=== PATIENT | male | born 1955 | race Caucasian/White ===

== ENCOUNTER → 2019-02-07 11:12 | Outpatient (CLI) | payer MEDICAID, SELFPAY ==
[2019-02-07 12:00] VITALS: BP 138/91; PULSE 62; RESP 12; O2SAT 90
[2019-02-07 12:15] VITALS: BP 144/92; PULSE 70; RESP 16; O2SAT 91
--- NOTE | 2019-02-07 12:22 | XR_ITS ---
EXAM: XR thoracic spine 3V HISTORY: Back pain ITS.REASON: pain Comparison: None FINDINGS: There is exaggeration of the thoracic kyphosis. There is mild wedging of T4 and T5 which appears chronic. No acute fracture or dislocation evident. No lytic or blastic change. Degenerative changes are present in the lower thoracic spine with osteophyte formation. IMPRESSION: Mild wedging of T4 of 30% and T5 of 40% and appears old. Please correlate clinically. Mild degenerative changes otherwise negative
--- NOTE | 2019-02-07 12:22 | XR_ITS ---
EXAM: XR cervical spine 2V HISTORY: Neck pain ITS.REASON: pain ORDERING PHYSICIAN: Vannesa Cho APRN PATIENT AGE: 63 years COMPARISON: None FINDINGS: There is exaggeration of the thoracic kyphosis with resultant exaggeration of the cervical lordosis. Degenerative disc disease is present at C5-C6 T6 C7 and C7-T1. No fracture or dislocation. No lytic or blastic change. IMPRESSION: Degenerative disc disease with thoracic kyphosis and exaggerated cervical lordosis
--- NOTE | 2019-02-07 12:22 | XR_ITS ---
EXAM: XR lumbar spine 2-3V HISTORY: ITS.REASON: pain ORDERING PHYSICIAN: Vannesa Cho APRN PATIENT AGE: 63 years COMPARISON: None FINDINGS: There is minimal lumbar curvature convex right there are degenerative changes in the lower thoracic spine and at L5-S1. Small endplate osteophytes are present from L2 to L4. No fracture or dislocation. No lytic or blastic change. IMPRESSION: Degenerative changes as described above, no acute finding
[2019-02-07 13:25] LABS: Basophils # 0.1 K/mm3 (0-0.2); Basophils % 0.8 % (0.1-2.0); Eosinophils # 0.5 K/mm3 (0.0-0.4); Eosinophils % 5.3 % (0.1-12.0); Hemoglobin 12.5 g/dL (14.1-18.0); Lymphocytes # 2.8 K/mm3 (0.7-4.5); Lymphocytes % 29.1 % (10-50); Mean Corpuscular HGB Conc 31.1 g/dL (31.8-35.4); Mean Corpuscular Hemoglobin 31.2 pg (27.0-31.2); Mean Corpuscular Volume 100.3 fl (80-94); Mean Platelet Volume 7.4 fl (7.4-10.4); Monocytes # 0.5 K/mm3 (0.1-1.0); Monocytes % 5.5 % (1.7-9.3); Neutrophils # 5.7 K/mm3 (1.8-7.8); Neutrophils % 59.3 % (37.0-80.0); Platelet Count 285 K/mm3 (142-424); Red Blood Count 3.99 M/mm3 (4.60-6.20); Red Cell Distribution Width 13.8 % (11.5-17.5); White Blood Count 9.5 K/mm3 (4.8-10.8)
[2019-02-07 14:26] LABS: Alanine Aminotransferase 26 U/L (12-78); Albumin/Globulin Ratio 1.2 (1.1-1.8); Alkaline Phosphatase 67 U/L (46-116); Anion Gap 13.9 mEq/L (5-15); Aspartate Amino Transferase 16 U/L (15-37); Blood Urea Nitrogen 14 mg/dL (7-18); Calcium 8.5 mg/dL (8.5-10.1); Carbon Dioxide 28 mmol/L (21.0-32.0); Chloride 106 mmol/L (98-107); Creatinine,Serum 1.03 mg/dL (0.70-1.30); Estimated Glomerular Filt Rate 73 ml/min (>60); GFR (African American) 88 ML/MIN (>60); Globulin 3.4 gm/dl (1.3-3.2); Glucose 93 mg/dL (74-106); Potassium 3.9 mmoL/L (3.5-5.1); Sodium 144 mmol/L (136-145); Total Protein,Serum 7.4 gm/dL (6.4-8.2)
[2019-02-07 14:42] LABS: C-Reactive Protein < 0.2 mg/L (0.0-0.9)
[2019-02-07 15:20] LABS: Erythrocyte Sedimentation Rate 19 mm/hr (0-20)
[2019-02-08 16:12] LABS: Anti-Centromere B Antibodies <0.2 AI (0.0-0.9); Anti-Jo-1 <0.2 AI (0.0-0.9); Anti-Smith Antibody <0.2 AI (0.0-0.9); Antichromatin Antibodies 0.2 AI (0.0-0.9); Antiscleroderma-70 Antibodies <0.2 AI (0.0-0.9); RNP Antibodies <0.2 AI (0.0-0.9); Sjogren's Anti-SS-A <0.2 AI (0.0-0.9); Sjogren's Anti-SS-B <0.2 AI (0.0-0.9)
[2019-02-09 13:53] LABS: Anti-DNA (DS) Ab Qn 1 IU/mL (0-9); RA Latex Turbid. <10.0 IU/mL (0.0-13.9); Vitamin D 25 Hydroxy 24.7 ng/mL (30.0-100.0)
[2019-02-09 13:54] LABS: Anti-Cyclic Citrullinated Pept 13 units (0-19)
== END ==
PROVIDERS: PCP Nurse Practitioner Family; Visit Provider Nurse Practitioner Family
DX: R06.02 Shortness of breath (principal); Z76.89 Persons encountering health services in other specified circumstances; Z87.891 Personal history of nicotine dependence; M54.2 Cervicalgia; M54.9 Dorsalgia, unspecified; M25.50 Pain in unspecified joint; R53.83 Other fatigue
CPT/HCPCS: 36415; 72040; 72072; 72100; 80053; 82652; 85025; 85651; 86140; 86200; 86225; 86235; 86431; 94060; 94618; 94640

== ENCOUNTER → 2019-02-10 13:14 | Outpatient (CLI) | payer MEDICAID, SELFPAY ==
[2019-02-10 15:32] LABS: Ferritin 276 ng/mL (8-388)
[2019-02-11 09:20] LABS: Iron 77 ug/dL (38-169); UIBC 228 ug/dL (111-343)
[2019-02-11 17:15] LABS: Iron Saturation 25 % (15-55); Vitamin B12 354 pg/mL (232-1245)
== END ==
PROVIDERS: Visit Provider Nurse Practitioner Family
DX: E55.9 Vitamin D deficiency, unspecified (principal)
CPT/HCPCS: 82607; 82728; 82746; 83540; 83550

== ENCOUNTER → 2019-12-04 08:13 | Outpatient (CLI) | payer MEDICARE, MEDICAID, SELFPAY ==
[2019-12-04 11:52] LABS: Adenovirus,PCR Not Detected (NotDetected); Bordetella Pertussis Not Detected (NotDetected); Chlamydophila Pneumoniae, PCR Not Detected (NotDetected); Coronavirus 19, PCR Not Detected (NotDetected); Coronavirus 229E Not Detected (NotDetected); Coronavirus NL63 Not Detected (NotDetected); Coronavirus OC43 Not Detected (NotDetected); Coronovirus HKU1,PCR Not Detected (NotDetected); Human Metapneumovirus Not Detected (NotDetected); Influenza A, PCR Not Detected (NotDetected); Influenza AH1, 2009 Not Detected (NotDetected); Influenza AH1, PCR Not Detected (NotDetected); Influenza AH3,PCR Not Detected (NotDetected); Influenza B, PCR Not Detected (NotDetected); Mycoplasma Pneumoniae, PCR Not Detected (NotDected); Parainfluenza 1, PCR Not Detected (NotDetected); Parainfluenza 2, PCR Not Detected (NotDetected); Parainfluenza 3, PCR Not Detected (NotDetected); Parainfluenza 4, PCR Not Detected (NotDetected); Respiratory Syncytial Virus Not Detected (NotDetected); Rhinovirus/Enterovirus Not Detected (NotDetected)
--- NOTE | 2019-12-04 14:25 | PC.NURSE ---
Notified patient COVID-19 swab was negative and patient could begin colon prep. Notified OR scheduling/dairy department manager as well.
== END ==
PROVIDERS: PCP Emergency Medicine; Visit Provider Surgery
DX: Z01.818 Encounter for other preprocedural examination (principal)
CPT/HCPCS: 87581; 87633; 87798

== ENCOUNTER 2019-12-06 07:42 | Day surgery (SDC) | payer MEDICARE, MEDICAID, SELFPAY ==
--- NOTE | 2019-12-02 12:31 | SUR.PREOP ---
12/02/19 @ 1230--PHONE CALL MADE TO PATIENT. PATIENT UNDERSTANDS THAT LAB WORK AND COVID-19 TESTING NEEDS TO BE COMPLETED @ 0800 ON 12/04/19. PATIENT UNDERSTANDS IF LAB WORK AND COVID-19 TESTS ARE NOT COMPLETED BY 12PM ON THAT DATE, THE SURGERY SCHEDULED WILL BE CANCELLED AND RESCHEDULED FOR ANOTHER TIME.
[2019-12-05 09:02] VITALS: BMI 27.3
[2019-12-06 07:58] VITALS: BP 184/106; PULSE 66; RESP 18; TEMP 36.9; O2SAT 96
--- NOTE | 2019-12-06 08:15 | P.PN_ITS ---
[facility] Anesthesia Checklist - Patient Identification Patient Identification: Arm Band, Verbal (Name & ) - Structural Data Admitted From: Home Planned Operative Procedure/s: Colonoscopy Consent for Planned Operative Procedure(s) Verified: Yes Verified Documents: Surgical Consent, History and Physical - NPO Status Verified Time NPO: 00:00 - Chart Verification Results Verified: CBC (No CBC, but serology negative for Covid-19) - Additional verifications Anesthesia Reactions: No - Airway Assessment C-Spine Mobility Assessed: Yes TMJ Mobility Assessed: Yes Dentition: Poor Dentition - Neurological Assessment Level of Consciousness: Awake, Alert, Appropriate, Follows Commands Hx Seizures: No Numbness or tingling in extremities: No - Anesthesia Plan Anesthesia Risk discussed: Yes Anesthesia Plan: Verified ASA Class: III Anesthesia Type: MAC [facility] History I have reviewed the patient's past medical history: Yes Medical History: Reports:: Anxiety, Chronic Obstructive Pulmonary Disease (COPD), Hyperlipidemia, Hypertension Denies:: Cancer, Diabetes Mellitus Type 1, Diabetes Mellitus Type 2, Internal Pacemaker, MRSA *Have you ever received a pneumonia vaccine?: No *Have you received a flu vaccine this season?: No Comment:: enlarged prostate Anesthesia experience/problems:: no prior complications Other Surgeries: Yes: Colonoscopy, Other. No: Pacemaker Amputation: No Fractures: Yes Comment: hydrocelectomy - *Social History Educational Level: Completed High School Smoking Status: Never smoker Alcohol Intake: former Substance Use Type: marijuana *Occupational Status:: retired Housing: house *Travel in the last 8 weeks: None - Psychiatric History Pschychiatric History:: Reports:: Anxiety Family Hx:: Asthma, Heart Attack, Hyperlipidemia, Stroke
[2019-12-06 08:23] VITALS: O2SAT 96
[2019-12-06 08:50] VITALS: BP 118/74; PULSE 63; RESP 18; TEMP 36.4; O2SAT 93
--- NOTE | 2019-12-06 08:51 | P.PCN_ITS ---
- Procedure: Date: 12/06/19 Procedure Performed:: Total colonoscopy to terminal ileum Indications:: Patient is a 63-year-old white male referred by Malachi Alvarenga essentially for screening colonoscopy. He has never had a previous colonoscopy. He denies any significant symptomatology regarding bleeding in his bowels. He does state that he has some urinary issues and has urinary hesitancy. Of note, he has undergone yearly PSA screening through the [facility] and this past year was noted to have elevated PSA for which she saw Dr. Cornell Thomas in January. Patient did recently undergo prostate biopsy. He is unsure as to family history of colon cancer. Performing Provider:: Luis Antonio Solitario MD Referring Provider:: Malachi Alvarenga Sedation:: Propofol Procedure:: Consent was obtained patient was taken to endoscopy procedure room. He was positioned in a lateral decubitus position. Adequate intravenous sedation was achieved with anesthesia titration of propofol. Variable stiffness Olympus colonoscope was inserted via the anus and advanced to the cecum without difficulty. Colonic preparation was good. Ileocecal valve and appendiceal orifice were clearly identified. Colonoscope was advanced a short distance into the terminal ileum which appeared grossly normal. Colonoscope was slowly withdrawn through the colon with careful surveillance. There were no polyps, masses, or mucosal lesions noted. He did have rare sigmoid diverticuli. Retroflexion within the rectum revealed nonpathologic internal hemorrhoids. There was a possible hyperplastic appearing polyp. However, with prolonged careful surveillance of the rectum with retroflexion and non-retroflexion there was no evidence of any definite polyp. Colonoscope was withdrawn Findings:: Minimal sigmoid diverticuli Recommendations:: Recommend repeat colonoscopy 5 years given the undetermined family history and due to the fact that this is the patient's initial screening colonoscopy Complications:: None Estimated blood obtained (mL): 0
[2019-12-06 09:00] VITALS: BP 144/76; PULSE 64; RESP 18; O2SAT 95
[2019-12-06 09:10] VITALS: BP 129/72; PULSE 65; RESP 18; O2SAT 95
[2019-12-06 09:20] VITALS: BP 131/81; PULSE 58; RESP 18; O2SAT 95
== END 2019-12-06 09:20 | disposition home or self-care (01) ==
LOC: OUTP 07:44
PROVIDERS: PCP Nurse Practitioner Family; Visit Provider Surgery
PROC: 0DJD8ZZ Inspection of Lower Intestinal Tract, Via Natural or Artificial Opening Endoscopic (ICD-10-PCS; principal; 2019-12-06 08:30)
DX: Z12.11 Encounter for screening for malignant neoplasm of colon (principal); K57.30 Diverticulosis of large intestine without perforation or abscess without bleeding
CPT/HCPCS: G0121

== ENCOUNTER → 2020-02-28 08:53 | Outpatient (CLI) | payer MEDICARE, MEDICAID, SELFPAY ==
--- NOTE | 2020-02-28 09:04 | XR_ITS ---
PROCEDURE: XR FOOT WT BEARING LT 3V CLINICAL INDICATION: Crush Injury to left foot 4 years ago. Pain COMPARISON: No exams were available for comparison FINDINGS: No fracture or dislocation. No lytic or blastic change. There is normal mineralization. Minimal osteoarthritic changes 1st metatarsophalangeal joint with mild bony hypertrophy at the distal aspect of the 1st metatarsal. Other findings:None. IMPRESSION: Degenerative changes 1st metatarsophalangeal joint otherwise negative Dictated by: Mau Winchester MD 02/29/2020 07:45 Electronically signed by Mau Winchester MD in [place] 02/29/2020 07:45
--- NOTE | 2020-02-28 09:04 | XR_ITS ---
PROCEDURE: XR FOOT WT BEARING RT 3V CLINICAL INDICATION: comparison view COMPARISON: No exams were available for comparison FINDINGS: No fracture or dislocation. No lytic or blastic change. There is normal mineralization. The joint spaces are well-preserved. No significant degenerative/arthritic changes. No erosive changes evident. Other findings:None. IMPRESSION: No acute findings. Dictated by: Mau Winchester MD 02/29/2020 07:43 Electronically signed by Mau Winchester MD in [place] 02/29/2020 07:43
== END ==
PROVIDERS: PCP Emergency Medicine; Visit Provider Podiatrist
DX: M79.672 Pain in left foot (principal); M79.671 Pain in right foot
CPT/HCPCS: 73630

== ENCOUNTER 2020-04-18 12:17 | Emergency (ER) | payer MEDICARE, MEDICAID, SELFPAY ==
--- NOTE | 2020-04-18 12:20 | HMH.EDGENADL ---
ED Disposition Clinical Impression: Right-sided chest wall pain Headache Qualifiers: Headache type: unspecified Headache chronicity pattern: acute headache Intractability: not intractable Qualified Code(s): R51 - Headache Contusion of right chest wall Qualifiers: Encounter type: initial encounter Qualified Code(s): S20.211A - Contusion of right front wall of thorax, initial encounter Periorbital contusion Qualifiers: Encounter type: initial encounter Laterality: right Qualified Code(s): S05.11XA - Contusion of eyeball and orbital tissues, right eye, initial encounter Subconjunctival hemorrhage Qualifiers: Laterality: right Qualified Code(s): H11.31 - Conjunctival hemorrhage, right eye Disposition: Home, Self-Care Condition on Discharge: Good Additional Instructions: Follow-up with your PCP. Tylenol for pain. If you have any new, changing, worsening, or concerning symptoms, come back to the emergency department. Referrals: Fawad Hoffman MD [Primary Care Provider] - Time of Disposition: 14:57 - Critical Care Critical Care Time: No Attestation: On , the high probability of a clinically significant, sudden or life threatening deterioration of the following system(s) required my full and direct attention, intervention and personal management. The time I documented below is in addition to time spent performing reported procedures but includes the following listed in this critical care notation. Medical Decision Making - Medical Records Medical records reviewed: Yes: I reviewed the patient's medical records. MR Comment: 64-year-old male presents the emergency department after having a syncopal episode and falling. He arrives to the emergency department hemodynamically stable, with reassuring vital signs, and looks well on exam. However given his history of cancer and head trauma, will CT his head, face, chest as well as basic labs. He has subconjunctival hemorrhage of the right eye but there is no blood layering in the anterior chamber, eye is not proptotic and good EOM. No pain so not concerned for corneal abrasion/laceration. Will reassess. On reassessment, patient remains well. Labs reviewed and nonactionable. Imaging personally reviewed and read by radiology and there are no worrisome acute findings. Radiologist did make note of an adrenal lesion, of course hemorrhage was a consideration, but this is unlikely given his trauma, at this time, he only has tenderness over the anterior right chest. Given that he is stable and looks well, advised that he follow-up with his PCP in the next few days. He was given strict return precautions and discharge instructions and verbalized understanding and agreement with the plan. Safe to discharge. - Ayan Inquiry Pt receiving controlled substance: No Vital Signs: 04/18/20 12:33 04/18/20 13:00 04/18/20 14:00 Temperature 98.5 F Temperature Source Oral Pulse Rate [Right Radial] 57 L 64 53 L Respiratory Rate 18 Blood Pressure [Right Arm] 124/78 101/77 L 145/84 H Blood Pressure Mean [Right Arm] 93 85 104 Blood Pressure Source [Right Arm] Automatic Cuff Automatic Cuff Automatic Cuff Blood Pressure Position [Right Arm] Sitting Sitting Sitting 02 Sat by Pulse Oximetry 94 L 94 L 92 L Oxygen Delivery Method Room Air Room Air Room Air 04/18/20 14:45 Temperature Temperature Source Pulse Rate [Right Radial] 64 Respiratory Rate Blood Pressure [Right Arm] 112/63 Blood Pressure Mean [Right Arm] 79 Blood Pressure Source [Right Arm] Automatic Cuff Blood Pressure Position [Right Arm] Sitting 02 Sat by Pulse Oximetry 93 L Oxygen Delivery Method Room Air - Lab Data Lab Results 04/18/20 12:47: WBC 16.7 H, RBC 4.35 L, Hgb 13.9 L, Hct 41.3 L, MCV 95.0 H, MCH 32.1 H, MCHC 33.8, RDW 14.2, Plt Count 248, MPV 7.3 L, Neut % (Auto) 81.6 H, Lymph % (Auto) 12.1, [place] % (Auto) 4.8, Eos % (Auto) 1.0, Baso % (Auto) 0.4, Neut # (Auto) 13.7 H, Lymph # (Auto) 2.0, [place] # (Auto)
--- NOTE | 2020-04-18 12:28 | CT_ITS ---
PROCEDURE: CT HEAD/BRAIN WO CON CLINICAL INDICATION: fall, trauma Head injury with headache/pain, contusion, abrasion or hematoma COMPARISON: No exams were available for comparison TECHNIQUE: Axial images obtained. All CT scans at the facility use one or more dose reduction, viz: automated exposure control, ma/kV adjustment per patient size (including targeted exams where dose is matched to indication, i.e. head), or iterative reconstruction technique. FINDINGS: No midline shift, mass effect, intracranial hemorrhage, hydrocephalus, or extra-axial fluid collection is evident. The calvarium has an unremarkable appearance. No mastoid effusion. There is moderate mucosal thickening of the ethmoid sinuses bilaterally with mucosal thickening/nodularity of the ethmoid and maxillary sinuses also with nodularity the nasal turbinates. These findings are consistent with polyposis. There is mucosal thickening of the sphenoid sinus posteriorly on the right. IMPRESSION: 1. No acute intracranial findings. 2. Polyposis of the nasal canal and paranasal sinuses. Dictated by: Mau Winchester MD 04/18/2020 14:28 Mau Winchester MD in [place] 04/18/2020 14:28
--- NOTE | 2020-04-18 12:29 | CT_ITS ---
PROCEDURE: CT CERVICAL SPINE WO CON CLINICAL INDICATION: trauma Neck injury with pain, contusion/abrasion or hematoma, cervical sprain/strain the COMPARISON: No exams were available for comparison TECHNIQUE: Axial images obtained with sagittal and coronal reformats. All CT scans at the facility use one or more dose reduction, viz: automated exposure control, ma/kV adjustment per patient size (including targeted exams where dose is matched to indication, i.e. head), or iterative reconstruction technique. Axial spiral CT scanning performed of the cervical spine beginning at the base of the skull and continuing to the upper T-spine. 3-D multiplanar reconstruction with 3-D manipulation of volumetric data set in image rendering was completed by the radiologist and/or technologist with the supervision of the radiologist on independent workstation. FINDINGS: There is normal alignment. No fracture or dislocation is evident. There is degenerative disc disease at C5-C6 with mild bilateral foraminal narrowing and mild degenerative disc disease at C6-C7 and C7-T1. Scattered small nodes are present in the neck. IMPRESSION: 1. No acute fracture. 2. Cervical spondylosis Dictated by: Mau Winchester MD 04/18/2020 14:30 Mau Winchester MD in [facility] 04/18/2020 14:30
--- NOTE | 2020-04-18 12:29 | CT_ITS ---
PROCEDURE: CT FACIAL BONES WO CON CLINICAL HISTORY: trauma Right eye pain and swelling with bruising, injury with COMPARISON: No exams were available for comparison TECHNIQUE: Axial images obtained with sagittal and coronal reformats. All CT scans at the facility use one or more dose reduction, viz: automated exposure control, ma/kV adjustment per patient size (including targeted exams where dose is matched to indication, i.e. head), or iterative reconstruction technique. FINDINGS: No obvious fracture. No sinus air-fluid level. There is some mild periorbital soft tissue swelling on the right. No postseptal edema evident. There is mucosal thickening of the maxillary and sphenoid sinuses as well as lobular mucosal thickening of the ethmoid sinuses and mild mucosal thickening of the right frontal sinus. Nodularity is noted of the nasal turbinates with lobular soft tissue density extending into the right maxillary sinus which could be due to a polyp. There is moderate leftward nasal septal deviation. Scattered small nodes are present in the neck. Multiple caries are noted. There are mild osteoarthritic changes of the TMJs. IMPRESSION: 1. No acute fracture. 2. Right periorbital hematoma. 3. Nasal polyposis with polypoid lesion in the right maxillary sinus as well as mild mucosal thickening of the paranasal sinuses. Dictated by: aMu Winchester MD 04/18/2020 14:40 Mau Winchester MD in [place] 04/18/2020 14:40
--- NOTE | 2020-04-18 12:30 | CT_ITS ---
PROCEDURE: CT ANGIO CHEST CLINCIAL INDICATION: syncope, cancer, trauma Blunt trauma with injury and pain, contusion/abrasion or hematoma following injury, right-sided rib pain following injury, fall with injury and pain, bruising and swelling, history of cancer of the prostate COMPARISON: No exams were available for comparison TECHNIQUE: IV Contrast: 70ML OPTIRAY 350 Axial images obtained with sagittal and coronal reformats. All CT scans at the facility use one or more dose reduction, viz: automated exposure control, ma/kV adjustment per patient size (including targeted exams where dose is matched to indication, i.e. head), or iterative reconstruction technique. FINDINGS: No mediastinal or hilar mass or adenopathy. Gynecomastia is noted. No evidence of aortic aneurysm or dissection. No evidence of pulmonary embolus.. There is evidence of old granulomatous disease. Minimal atelectatic changes are present in the lung bases. There are degenerative changes in the thoracic spine with mild wedging involving T6 and T5 which may be chronic. There is stranding of the fat in the suprarenal area on the right with thickening of the right posterior hemidiaphragm. There is a 3.8 cm right slightly hyperdense adrenal mass. Hemorrhage or infection or inflammation in this area is a consideration. This is incompletely image. Consider CT abdomen for further evaluation. IMPRESSION: 1. No acute finding of the chest. 2. Stranding of the fat in the suprarenal region on the right with thickening of the hemidiaphragm. This is associated with a 3.8 cm hyperdense right adrenal mass. Hemorrhage of the lesion is a consideration. Suggest abdomen CT for further evaluation. Dictated by: Mau Winchester MD 04/18/2020 14:47 Mau Winchester MD in [place] 04/18/2020 14:48
[2020-04-18 12:33] VITALS: BP 124/78; PULSE 57; RESP 18; TEMP 36.9; O2SAT 94; BMI 25.2
--- NOTE | 2020-04-18 12:40 | PC.NURSE ---
kong notified of orders on pt, spoke with Sofy
--- NOTE | 2020-04-18 12:41 | PC.NURSE ---
visual acuity R 20/70-reports vision blurry- notified ER MD Alves 20/40
--- NOTE | 2020-04-18 12:41 | PC.NURSE ---
v/s delayed due to visual acuity and IV insertion
[2020-04-18 12:55] LABS: Basophils # 0.1 K/mm3 (0-0.2); Basophils % 0.4 % (0.1-2.0); Eosinophils # 0.2 K/mm3 (0.0-0.4); Hematocrit 41.3 % (42.0-52.0); Hemoglobin 13.9 g/dL (14.1-18.0); Lymphocytes % 12.1 % (10-50); Mean Corpuscular HGB Conc 33.8 g/dL (31.8-35.4); Mean Corpuscular Hemoglobin 32.1 pg (27.0-31.2); Mean Platelet Volume 7.3 fl (7.4-10.4); Monocytes # 0.8 K/mm3 (0.1-1.0); Monocytes % 4.8 % (1.7-9.3); Neutrophils # 13.7 K/mm3 (1.8-7.8); Neutrophils % 81.6 % (37.0-80.0); Platelet Count 248 K/mm3 (142-424); Red Blood Count 4.35 M/mm3 (4.60-6.20); Red Cell Distribution Width 14.2 % (11.5-17.5); White Blood Count 16.7 K/mm3 (4.8-10.8)
[2020-04-18 13:00] VITALS: BP 101/77; PULSE 64; O2SAT 94
[2020-04-18 13:00] LABS: Chloride 107 mmol/L (98-107); Potassium 4.3 mmoL/L (3.5-5.1); Sodium 141 mmol/L (136-145)
[2020-04-18 13:01] LABS: MANUAL DIFFERENTIAL MANUAL DIFFERENTIAL (MANUAL DIFF)
[2020-04-18 13:02] LABS: Alanine Aminotransferase 61 U/L (12-78); Aspartate Amino Transferase 63 U/L (17-59); Blood Urea Nitrogen 16 mg/dl (9-20); Creatinine Clearance Estimated 76 mL/min (50-200); Estimated Glomerular Filt Rate 85 ml/min (>60); GFR (African American) 102 ML/MIN (>60)
[2020-04-18 13:03] LABS: Albumin/Globulin Ratio 1.3 (1.1-1.8); Alkaline Phosphatase 51 U/L (38-126); Anion Gap 11.3 mEq/L (5-15); Bilirubin,Total 1.3 mg/dl (0.2-1.3); Calcium 8.9 mg/dl (8.4-10.2); Carbon Dioxide 27 mmol/L (22.0-30.0); Globulin 3.1 g/dL (1.3-3.2); Glucose 138 mg/dl (74-100); Total Protein,Serum 7.1 g/dl (6.3-8.2)
[2020-04-18 13:17] LABS: Eosinophils % 2 % (0-3); Lymphocytes % 8 % (10-50); Monocytes % 3 % (2-9); Neutrophils % 87 % (42-76); Platelet Estimate Normal; RBC Morphology Normal; Total Cells Counted 100
--- NOTE | 2020-04-18 13:52 | PC.NURSE ---
Pt is with rad at this time.
--- NOTE | 2020-04-18 13:56 | PC.NURSE ---
Pt returned from rad.
[2020-04-18 14:00] VITALS: BP 145/84; PULSE 53; O2SAT 92
[2020-04-18 14:45] VITALS: BP 112/63; PULSE 64; O2SAT 93
--- NOTE | 2020-04-18 15:28 | PC.NURSE ---
pt reports unable to take any NSAIDs, notified ER MD who gave additional verbal orders
[2020-04-18 15:35] VITALS: BP 122/81; PULSE 53; RESP 18; TEMP 36.9; O2SAT 93
== END 2020-04-18 15:39 | disposition home or self-care (01) ==
PROVIDERS: Emergency Provider Emergency Medicine; PCP Emergency Medicine
DX: S20.211A Contusion of right front wall of thorax, initial encounter (principal); S05.11XA Contusion of eyeball and orbital tissues, right eye, initial encounter; H11.31 Conjunctival hemorrhage, right eye; I10 Essential (primary) hypertension; E78.5 Hyperlipidemia, unspecified; J44.9 Chronic obstructive pulmonary disease, unspecified; C61 Malignant neoplasm of prostate; W18.39XA Other fall on same level, initial encounter; Y92.013 Bedroom of single-family (private) house as the place of occurrence of the external cause; Z79.899 Other long term (current) drug therapy
CPT/HCPCS: 70450; 70486; 71275; 72125; 80053; 85007; 85025; 99283; Q9967

== ENCOUNTER → 2020-09-17 14:17 | Outpatient (CLI) | payer MEDICARE, MEDICAID, SELFPAY ==
--- NOTE | 2020-09-17 14:29 | XR_ITS ---
PROCEDURE: XR PELVIS MIN 3V CLINICAL INDICATION: pelvis pain Status post fall, landing on buttocks, complaints of pain and bruising COMPARISON: No exams were available for comparison TECHNIQUE: XR Pelvis AP View FINDINGS: No fracture or dislocation is evident. No significant degenerative change. No lytic or blastic change. IMPRESSION: No acute findings. Dictated by: Marisela James 09/17/2020 19:09 Marisela James in [place] 09/17/2020 19:09
--- NOTE | 2020-09-17 14:29 | XR_ITS ---
PROCEDURE: XR COCCYX 2V CLINICAL INDICATION: tail bone pain Status post fall landing on buttocks, complaints of pain and bruising COMPARISON: Pelvic x-rays from the same date FINDINGS: There is mild left angulation anterior curvature of the coccyx, within normal limits. There is no fracture. IMPRESSION: No acute findings. Dictated by: Marisela James 09/17/2020 19:12 Marisela James in [facility] 09/17/2020 19:12
== END ==
PROVIDERS: PCP Emergency Medicine; Visit Provider Emergency Medicine
DX: M53.3 Sacrococcygeal disorders, not elsewhere classified (principal); R10.2 Pelvic and perineal pain
CPT/HCPCS: 72190; 72220

== ENCOUNTER → 2020-10-04 15:21 | Outpatient (CLI) | payer MEDICARE, MEDICAID, SELFPAY ==
[2020-10-04 16:24] LABS: Chloride 108 mmol/L (98-107); Potassium 4.4 mmoL/L (3.5-5.1); Sodium 141 mmol/L (136-145)
[2020-10-04 16:27] LABS: Anion Gap 9.4 mEq/L (5-15); Blood Urea Nitrogen 13 mg/dl (9-20); Calcium 9.6 mg/dl (8.4-10.2); Carbon Dioxide 28 mmol/L (22.0-30.0); Estimated Glomerular Filt Rate 67 ml/min (>60); GFR (African American) 81 ML/MIN (>60); Glucose 119 mg/dl (74-100)
== END ==
PROVIDERS: Visit Provider Emergency Medicine
DX: Z01.812 Encounter for preprocedural laboratory examination (principal)
CPT/HCPCS: 36415; 80048

== ENCOUNTER → 2020-10-05 09:10 | Outpatient (CLI) | payer MEDICARE, MEDICAID, SELFPAY ==
--- NOTE | 2020-10-05 09:10 | CT_ITS ---
PROCEDURE: CT ABDOMEN WO/W CON CLINICAL HISTORY: adrenal gland disorder COMPARISON: CT CT ANGIO CHEST from 04/18/2020 TECHNIQUE: 70 mL Isovue 370 Axial images obtained with sagittal and coronal reformats. All CT scans at the facility use one or more dose reduction, viz: automated exposure control, ma/kV adjustment per patient size (including targeted exams where dose is matched to indication, i.e. head), or iterative reconstruction technique. FINDINGS: Pre and post enhanced are with delayed images per adrenal. Calcified granuloma is present in the right lower lobe. Previously noted right adrenal mass has nearly resolved. The adrenal gland on the right now measures 1.8 IX cm. The previously noted right adrenal mass may have been due to adrenal hemorrhage which has shown resolution. The left adrenal gland has an unremarkable appearance. There is mild fatty liver infiltration. The left adrenal gland has an unremarkable appearance. There are multiple right renal cysts measuring up to 3 cm. The pancreas has an unremarkable appearance. Unremarkable appearing spleen. IMPRESSION: Previously noted right adrenal mass has nearly resolved consistent with resolving adrenal hemorrhage. Dictated by: Mau Winchester MD 10/06/2020 10:45 Mau Winchester MD in [facility] 10/06/2020 10:45
== END ==
PROVIDERS: PCP Emergency Medicine; Visit Provider Emergency Medicine
DX: E27.9 Disorder of adrenal gland, unspecified (principal)
CPT/HCPCS: 74170; Q9967

== ENCOUNTER → 2020-12-14 15:15 | Outpatient (CLI) | payer MEDICARE, MEDICAID, SELFPAY ==
--- NOTE | 2020-12-14 15:15 | MR_ITS ---
PROCEDURE INFORMATION: Exam: MR Lumbar Spine Without Contrast Exam date and time: 12/14/2020 3:15 PM Age: 65 years old Clinical indication: Low back pain and sciatica; Patient HX: Bilateral hip and leg pain, no recent trauma or injury. 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 No prior; Additional info: Cauda equina syndrome TECHNIQUE: Imaging protocol: Multiplanar magnetic resonance images of the lumbar spine without intravenous contrast. COMPARISON: CR (L SPINE AP, LSPINE, L SPINE AP) 02/07/2019 12:24 PM FINDINGS: Vertebrae: Unremarkable. Spinal cord: Normal signal. No cord compression. L1-L2: No significant disc disease. No significant spinal canal stenosis. No neural foraminal stenosis. L2-L3: No significant disc disease. No significant spinal canal stenosis. No neural foraminal stenosis. L3-L4: No significant disc disease. No significant spinal canal stenosis. No neural foraminal stenosis. L4-L5: No significant disc disease. No significant spinal canal stenosis. No neural foraminal stenosis. L5-S1: Severe loss of disc height and signal is seen with a mild diffuse disc bulge. This is slightly greater to the right than the left and extends into the neural foramen. Moderate bilateral facet joint arthropathy is seen with anterior protruding osteophytes which in combination with the disc changes causes moderate left and moderate to severe right neural foraminal stenosis. Mild associated spinal stenosis is seen.. Soft tissues: Unremarkable. Kidneys and ureters: Well-circumscribed water signal lesions at the inferior pole of the right kidney are seen consistent with simple cysts. No additional evaluation is needed. IMPRESSION: Degenerative changes at L5-S1 as above. No acute fracture or malalignment.
== END ==
PROVIDERS: PCP Emergency Medicine; Visit Provider Emergency Medicine
DX: G83.4 Cauda equina syndrome (principal); M54.5 Low back pain
CPT/HCPCS: 72148; 76376

== ENCOUNTER → 2021-01-10 09:47 | Outpatient (POV) | payer MEDICARE, SELFPAY ==
[2021-01-10 10:12] VITALS: BP 102/71; PULSE 50; RESP 18; O2SAT 96; BMI 25.0
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
== END ==
PROVIDERS: PCP Emergency Medicine; Visit Provider Clinical Nurse Specialist Family Health
DX: M54.5 Low back pain (principal); M25.551 Pain in right hip; M25.552 Pain in left hip; M46.1 Sacroiliitis, not elsewhere classified
CPT/HCPCS: 99202; G0463

== ENCOUNTER 2021-01-18 10:36 | Day surgery (SDC) | payer MEDICARE, MEDICAID, SELFPAY ==
[2021-01-18 11:02] VITALS: BP 116/68; PULSE 64; RESP 18; TEMP 36.7; O2SAT 95; BMI 25.0
[2021-01-18 12:51] VITALS: BP 133/80; PULSE 51; RESP 20; O2SAT 96
[2021-01-18 12:58] VITALS: BP 124/73; PULSE 58; RESP 20; O2SAT 98
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
[2021-01-18 15:02] VITALS: BP 121/78; PULSE 50; RESP 18; TEMP 36.7; O2SAT 95
== END 2021-01-18 13:00 | disposition home or self-care (01) ==
PROVIDERS: PCP Emergency Medicine; Visit Provider Anesthesiology Pain Medicine
DX: M46.1 Sacroiliitis, not elsewhere classified (principal); E78.5 Hyperlipidemia, unspecified; I10 Essential (primary) hypertension; J44.9 Chronic obstructive pulmonary disease, unspecified; F41.9 Anxiety disorder, unspecified; Z88.6 Allergy status to analgesic agent
CPT/HCPCS: 27096; G0260; J1030; Q9966

== ENCOUNTER → 2021-02-11 11:49 | Outpatient (POV) | payer MEDICARE, MEDICAID, SELFPAY ==
[2021-02-11 11:57] VITALS: BP 117/78; PULSE 89; RESP 18; O2SAT 95; BMI 25.2
--- NOTE | 2021-02-11 12:35 | HMH.PAINSOAP ---
[facility] Pain Management SOAP Note Subjective:: Patient is a pleasant 65-year-old white male who presents today for follow-up after bilateral SI joint injections. He has been treated for low back pain with bilateral hip pain and pain in his lower extremities. He says the pain is worse on the left leg and radiation into his left ankle. Patient says that he got 100% relief following the injection for approximately 1 week. He says the more work he began to do such as heavy lifting and shoveling, his pain worsened. His pain is a 7 out of 10 today. He does say the injections gave him significant relief immediately after the injections, however, he says he continues to have some low back pain, however. Patient says his pain is worse when he is moving. He says that his back locks up . He says walking and standing worsen the pain as well. He is also complaining of right shoulder pain. We did discuss undergoing repeat injection therapy. He would like to try a lumbar epidural steroid injection to see if this helps with his low back pain. He says that the SI injection gave him relief to his bilateral hips and to his left leg. It did not help as much with the low back area. He has tried and failed conservative therapies of physical therapy for greater than 6 weeks in the past along with continued home stretching and anti-inflammatories. He does take clonazepam and [place] prescribed by Dr. Hoffman. Review of Systems General: No recent weight changes, no fever, no sleep disturbances Respiratory: No cough, no shortness of air, no recurring pulmonary infections Cardiovascular/peripheral vascular: No chest pain, no palpitations, no edema, no shortness of breath Gastrointestinal: No new onset incontinence, normal bowel movements reported Genitourinary: No new onset incontinence Musculoskeletal: Low back pain, bilateral hip pain, left leg pain radiating to ankle Psychiatric: Normal mood/affect Neurological: [Denies weakness in extremities], [denies balance issues] Objective:: Physical exam General: Alert and oriented x3, no acute distress, pleasant and cooperative, [on room air] Lungs: Respirations even and unlabored, symmetrical chest expansion Eyes: PERRL Musculoskeletal: Flexion and extension of lumbar spine somewhat guarded secondary to pain, deep tendon reflexes normal, strength in upper and lower extremities [5/5], [abnormal gait noted] Neurological: Speech clear, help desk specialist equal, no gross sensory deficit Assessment:: Degenerative disc disease lumbar spine with lumbar radiculopathy symptoms, Plan:: We will schedule patient for lumbar epidural steroid injection at L4-L5 area. He is not on any anticoagulation therapy. He has tried physical therapy for more than 6 weeks and continued home stretching. He is also tried meloxicam for which he is still taking with some relief, however, he continues to have significant pain. He did undergo bilateral SI injections which gave him excellent relief of his bilateral hip and leg pain, however, he did not help much with his low back pain. Patient continues to have worsening low back pain with movement and with working. We will schedule him for the lumbar epidural steroid injection at L4-L5 area. We will follow-up with him after the injection for reevaluation of symptoms. Patient is also having right shoulder pain. We did discuss he may need to undergo a right intra-articular shoulder injection in the future. We discussed imaging, however, he has deferred on imaging until treatment of his low back. Risks and benefits of the procedure have been explained to the patient. Patient would like to proceed with the procedure. Possible side effects of corticosteroids have been discussed with the patient. Patient has been instructed to contact the clinic with any concerns before the next appointment. Dr. Bahena has reviewed this note and agrees with this plan of care. This note was dictated using voice recogniti
== END ==
PROVIDERS: PCP Emergency Medicine; Visit Provider Clinical Nurse Specialist Family Health
DX: M51.16 Intervertebral disc disorders with radiculopathy, lumbar region (principal)
CPT/HCPCS: 99212; G0463

== ENCOUNTER → 2021-02-28 10:30 | Outpatient (POV) | payer MEDICARE, MEDICAID, SELFPAY ==
[2021-02-28 10:41] VITALS: BP 88/64; PULSE 71; RESP 20; O2SAT 94; BMI 25.0
--- NOTE | 2021-02-28 11:08 | P.CONS_ITS ---
[facility] Pain Management SOAP Note Subjective:: Patient is a 65-year-old white male who presents today for follow-up. Patient is being treated for low back pain with bilateral hip pain and pain in his lower extremities. Pain is worse on the left side and radiates into the left ankle. He has had 1 injection for which he got 100% relief for a week, however, he says he is not proceeding with any further injective therapy. He is here today to discuss possible medication options. He does take clonazepam and [place] prescribed by Dr. Hoffman. Patient is asking for chlorzoxazone. He says this is the only thing that gives him significant relief. This was given to him in the past by Dr. Neal. Patient says that he does not with her medications if they do not help. He has tried Flexeril with minimal relief. We discussed possible tizanidine. He says he is willing to try this. His pain is a 7 out of 10 today. Review of Systems General: No recent weight changes, no fever, no sleep disturbances Respiratory: No cough, no recurring pulmonary infections Cardiovascular/peripheral vascular: No chest pain, no palpitations, [no edema], no shortness of breath Gastrointestinal: No new onset incontinence, normal bowel movements reported Genitourinary: No new onset incontinence Musculoskeletal: [] Low back pain with radiation into left leg and ankle Psychiatric: [Normal mood/affect] Neurological: [Denies weakness in extremities], [denies balance issues] Objective:: Physical exam General: Alert and oriented x3, no acute distress, pleasant and cooperative, [on room air] Lungs: Respirations even and unlabored, symmetrical chest expansion Eyes: PERRL Musculoskeletal: Flexion and extension of [] lumbar [spine] somewhat guarded secondary to pain, strength in upper and lower extremities [5/5], [antalgic gait noted] Neurological: Speech clear, [tearoom host/hostess equal], no gross sensory deficit Assessment:: Degenerative disc disease lumbar spine with lumbar radiculopathy symptoms Plan:: Patient has deferred on injective therapy at this time. We will order him tizanidine 2 mg 1 tablet p.o. twice daily. We will see him back in a month for reevaluation of symptoms. Patient has been instructed to contact the clinic with any concerns before the next appointment. Dr. Bahena has reviewed this note and agrees with this plan of care. This note was dictated using voice recognition software and make contain errors or omissions. [facility] History I have reviewed the patient's past medical history: Yes Medical History: Reports:: Anxiety, Chronic Obstructive Pulmonary Disease (COPD), Hyperlipidemia, Hypertension Denies:: Cancer, Diabetes Mellitus Type 1, Diabetes Mellitus Type 2, Internal Pacemaker, MRSA, Seizures *Have you ever received a pneumonia vaccine?: No *Have you received a flu vaccine this season?: No Other Medical History: Denies: Blood Transfusion Reaction Other Surgeries: Yes: Cancer Surgery (prostate), Colonoscopy, Other. No: Pacemaker Amputation: No Fractures: Yes - *Social History Smoking Status: Former smoker Alcohol Intake: never Substance Use Type: marijuana *Occupational Status:: retired Housing: house *Travel in the last 8 weeks: None - Psychiatric History Pschychiatric History:: Reports:: Anxiety Family Hx:: Asthma, Heart Attack, Hyperlipidemia, Stroke
== END ==
PROVIDERS: PCP Emergency Medicine; Visit Provider Clinical Nurse Specialist Family Health
DX: M51.16 Intervertebral disc disorders with radiculopathy, lumbar region (principal)
CPT/HCPCS: 99212; G0463

== ENCOUNTER → 2021-04-01 11:01 | Outpatient (POV) | payer MEDICARE, MEDICAID, SELFPAY ==
[2021-04-01 11:29] VITALS: BP 111/72; PULSE 55; RESP 18; O2SAT 97; BMI 24.9
--- NOTE | 2021-04-01 12:10 | P.CONS_ITS ---
[facility] Pain Management SOAP Note Subjective:: Patient is a 65-year-old white male who presents today for follow-up. He has been treated for low back pain with bilateral hip pain and bilateral lower extremity pain. Patient's pain is worse on the left side and radiates into the left ankle. He has had 1 injection in the clinic for which he got 100% relief for 2 weeks. Unfortunately, the patient's pain did return. Patient is not interested in further injective therapy. He did follow-up with his primary care provider who has placed him on oral pain medicine for pain management. Patient says this is working well for him at this time. We did prescribe the patient tizanidine and he would like to continue this for muscle spasms in his low back. Patient does rate his pain today a 7 out of 10. Review of Systems General: No recent weight changes, no fever, no sleep disturbances Respiratory: No cough, no shortness of air, no recurring pulmonary infections Cardiovascular/peripheral vascular: No chest pain, no palpitations, no edema, no shortness of breath Gastrointestinal: No new onset incontinence, normal bowel movements reported Genitourinary: No new onset incontinence Musculoskeletal: Low back pain with radiation into bilateral hips, and lower extremities Psychiatric: [Normal mood/affect] Neurological: [Denies weakness in extremities], [denies balance issues] Objective:: Physical exam General: Alert and oriented x3, no acute distress, pleasant and cooperative, [on room air] Lungs: Respirations even and unlabored, symmetrical chest expansion Eyes: PERRL Musculoskeletal: Flexion and extension of lumbar [spine] somewhat guarded secondary to pain, strength in upper and lower extremities [5/5], [antalgic gait noted] Neurological: Speech clear, [director of diagnostic imaging equal], no gross sensory deficit Assessment:: Degenerative disc disease lumbar spine with lumbar radiculopathy symptoms Plan:: We will refill the patient's tizanidine 4 mg 1 tablet p.o. twice daily. We will give him 2 refills on the medicine. He will follow up with us in 2 months. He is being managed with oral medications by his primary care provider at this time as well. He has been instructed to contact clinic if he has any concerns for his next appointment. He is not interested in further injective therapy. Patient has been instructed to contact the clinic with any concerns before the next appointment. Dr. Bahena has reviewed this note and agrees with this plan of care. This note was dictated using voice recognition software and make contain errors or omissions. [facility] History I have reviewed the patient's past medical history: Yes Medical History: Reports:: Anxiety, Chronic Obstructive Pulmonary Disease (COPD), Hyperlipidemia, Hypertension Denies:: Cancer, Diabetes Mellitus Type 1, Diabetes Mellitus Type 2, Internal Pacemaker, MRSA, Seizures *Have you ever received a pneumonia vaccine?: No *Have you received a flu vaccine this season?: No Other Medical History: Denies: Blood Transfusion Reaction Other Surgeries: Yes: Cancer Surgery (prostate), Colonoscopy, Other. No: Pacemaker Amputation: No Fractures: Yes - *Social History Smoking Status: Former smoker Alcohol Intake: never Substance Use Type: marijuana *Occupational Status:: unemployed Housing: house *Travel in the last 8 weeks: None - Psychiatric History Pschychiatric History:: Reports:: Anxiety Family Hx:: Asthma, Heart Attack, Hyperlipidemia, Stroke
== END ==
PROVIDERS: PCP Emergency Medicine; Visit Provider Clinical Nurse Specialist Family Health
DX: M51.16 Intervertebral disc disorders with radiculopathy, lumbar region (principal)
CPT/HCPCS: 99212; G0463

== ENCOUNTER → 2021-05-08 13:59 | Outpatient (CLI) | payer MEDICARE, MEDICAID, SELFPAY ==
[2021-05-08 14:19] LABS: Amphetamine/Metha Screen,Urine Negative ng/ml (<1000); Benzodiazepines Screen,Urine Negative ng/ml (<200)
[2021-05-08 14:20] LABS: Barbiturates Screen,Urine Negative ng/ml (<200)
[2021-05-08 14:21] LABS: Cannabinoid Screen,Urine Positive ng/ml (<50); Cocaine Screen,Urine Negative ng/ml (<300)
[2021-05-08 14:22] LABS: Methadone Screen,Urine Negative ng/ml (<300); Opiate Screen,Urine Positive ng/ml (<300)
[2021-05-08 14:23] LABS: Phencyclidine Screen,Urine Negative ng/ml (<25)
== END ==
PROVIDERS: Visit Provider Emergency Medicine
DX: Z79.899 Other long term (current) drug therapy (principal)
CPT/HCPCS: 80305

== ENCOUNTER → 2021-07-08 14:43 | Outpatient (CLI) | payer MEDICARE, MEDICAID, SELFPAY ==
[2021-07-08 19:37] LABS: Amphetamine/Metha Screen,Urine Negative ng/ml (<1000); Barbiturates Screen,Urine Negative ng/ml (<200)
[2021-07-08 19:38] LABS: Benzodiazepines Screen,Urine Negative ng/ml (<200)
[2021-07-08 19:39] LABS: Cannabinoid Screen,Urine Positive ng/ml (<50)
[2021-07-08 19:40] LABS: Cocaine Screen,Urine Negative ng/ml (<300); Methadone Screen,Urine Negative ng/ml (<300)
[2021-07-08 19:41] LABS: Opiate Screen,Urine Positive ng/ml (<300)
[2021-07-08 19:42] LABS: Phencyclidine Screen,Urine Negative ng/ml (<25)
== END ==
PROVIDERS: Visit Provider Emergency Medicine
DX: M54.16 Radiculopathy, lumbar region (principal)
CPT/HCPCS: 80305

== ENCOUNTER → 2021-08-08 09:12 | Outpatient (CLI) | payer MEDICARE, MEDICAID, SELFPAY ==
--- NOTE | 2021-08-08 09:41 | XR_ITS ---
FINAL REPORT CLINICAL HISTORY: right hip pain FINDINGS: RIGHT HIP Two views of the right hip including AP pelvis demonstrate no acute fracture or dislocation. The joint spaces appear normal. The visualized bony structures are well aligned. No soft tissue abnormality is seen. IMPRESSION: No acute bony abnormality. Reviewed, Interpreted and Dictated by Bruno Miranda MD Transcribed by Isis Cordero Authenticated by Bruno Miranda MD on 08/08/2021 12:22:22 PM [facility][1]
== END ==
PROVIDERS: PCP Emergency Medicine; Visit Provider Emergency Medicine
DX: M25.551 Pain in right hip (principal)
CPT/HCPCS: 73502

== ENCOUNTER 2021-10-23 13:05 | Outpatient (RCR) | payer MEDICARE, MEDICAID, SELFPAY | END 2021-10-23 13:10 | disposition home or self-care (01) | LOC: PT 13:05 | PROVIDERS: Visit Provider Orthopaedic Surgery | DX: M25.551 Pain in right hip (principal) | CPT/HCPCS: 97163 ==

== ENCOUNTER → 2021-11-01 10:59 | Outpatient (CLI) | payer MEDICARE, MEDICAID, SELFPAY ==
[2021-11-01 14:52] LABS: Amphetamine/Metha Screen,Urine Negative ng/ml (<1000)
[2021-11-01 14:53] LABS: Barbiturates Screen,Urine Negative ng/ml (<200); Benzodiazepines Screen,Urine Negative ng/ml (<200)
[2021-11-01 14:55] LABS: Cannabinoid Screen,Urine Positive ng/ml (<50); Cocaine Screen,Urine Negative ng/ml (<300)
[2021-11-01 14:56] LABS: Methadone Screen,Urine Negative ng/ml (<300); Opiate Screen,Urine Positive ng/ml (<300)
[2021-11-01 14:57] LABS: Phencyclidine Screen,Urine Negative ng/ml (<25)
== END ==
PROVIDERS: Visit Provider Emergency Medicine
DX: M54.16 Radiculopathy, lumbar region (principal)
CPT/HCPCS: 80305

== ENCOUNTER → 2021-12-31 14:37 | Outpatient (CLI) | payer MEDICARE, MEDICAID, SELFPAY ==
[2021-12-31 15:31] LABS: Amphetamine/Metha Screen,Urine Negative ng/ml (<1000); Barbiturates Screen,Urine Negative ng/ml (<200)
[2021-12-31 15:32] LABS: Benzodiazepines Screen,Urine Negative ng/ml (<200)
[2021-12-31 15:33] LABS: Cannabinoid Screen,Urine Positive ng/ml (<50); Cocaine Screen,Urine Negative ng/ml (<300)
[2021-12-31 15:34] LABS: Methadone Screen,Urine Negative ng/ml (<300)
[2021-12-31 15:35] LABS: Opiate Screen,Urine Positive ng/ml (<300); Phencyclidine Screen,Urine Negative ng/ml (<25)
== END ==
PROVIDERS: PCP Emergency Medicine; Visit Provider Emergency Medicine
DX: M54.16 Radiculopathy, lumbar region (principal)
CPT/HCPCS: 80305

== ENCOUNTER → 2022-02-27 13:02 | Outpatient (CLI) | payer MEDICARE, MEDICAID, SELFPAY ==
--- NOTE | 2022-02-27 13:08 | XR_ITS ---
FINAL REPORT CLINICAL HISTORY: fracture evaluation FINDINGS: LEFT FOOT 3 views were obtained. There is no acute fracture or dislocation. There is multi joint degenerative disease most pronounced at the 1st MTP joint. There is no soft tissue abnormality. IMPRESSION: No fracture identified. Reviewed, Interpreted and Dictated by Filomena Hager MD Transcribed by Isis Cordero Authenticated and [facility]
--- NOTE | 2022-02-27 13:08 | XR_ITS ---
FINAL REPORT CLINICAL HISTORY: fracture evaluation COMPARISON: 01/31/2022 FINDINGS: AP, oblique, and lateral views of the left ankle were obtained. There is no fracture or dislocation. Irregularity of the medial anterior talus is unchanged. The ankle mortise is intact. There is improved soft tissue edema. IMPRESSION: No acute osseous abnormality of the left ankle. Reviewed, Interpreted and Dictated by Filomena Hager MD Transcribed by Isis Cordero Authenticated and [facility]
== END ==
PROVIDERS: PCP Emergency Medicine; Visit Provider Podiatrist
DX: T14.8XXA Other injury of unspecified body region, initial encounter (principal); M25.572 Pain in left ankle and joints of left foot
CPT/HCPCS: 73610; 73630

== ENCOUNTER 2022-03-03 16:19 | Emergency (ER) | payer MEDICARE, MEDICAID, SELFPAY ==
[2022-03-03 16:21] VITALS: BP 137/90; PULSE 80; RESP 16; TEMP 36.9; O2SAT 93; BMI 24.7
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
--- NOTE | 2022-03-03 18:05 | PC.NURSE ---
DR COLEMAN IN WITH PT
[2022-03-03 18:28] VITALS: BP 129/89; PULSE 84; RESP 16; TEMP 36.9; O2SAT 95
== END 2022-03-03 18:28 | disposition home or self-care (01) ==
PROVIDERS: Emergency Provider Emergency Medicine; PCP Emergency Medicine
DX: S92.102 Unspecified fracture of left talus (principal); G89.29 Other chronic pain; M54.50 Low back pain, unspecified
CPT/HCPCS: 99283

== ENCOUNTER → 2022-03-12 06:15 | Outpatient (CLI) | payer MEDICARE, MEDICAID, SELFPAY ==
[2022-03-12 19:05] LABS: Amphetamine/Metha Screen,Urine Negative ng/ml (<1000)
[2022-03-12 19:06] LABS: Barbiturates Screen,Urine Negative ng/ml (<200); Benzodiazepines Screen,Urine Positive ng/ml (<200)
[2022-03-12 19:07] LABS: Cannabinoid Screen,Urine Positive ng/ml (<50)
[2022-03-12 19:08] LABS: Cocaine Screen,Urine Negative ng/ml (<300)
[2022-03-12 19:09] LABS: Methadone Screen,Urine Negative ng/ml (<300)
[2022-03-12 19:10] LABS: Opiate Screen,Urine Positive ng/ml (<300)
[2022-03-12 19:11] LABS: Phencyclidine Screen,Urine Negative ng/ml (<25)
== END ==
PROVIDERS: PCP Emergency Medicine; Visit Provider Emergency Medicine
DX: M54.16 Radiculopathy, lumbar region (principal)
CPT/HCPCS: 80305

== ENCOUNTER → 2022-03-26 13:57 | Outpatient (CLI) | payer MEDICARE, MEDICAID, SELFPAY ==
--- NOTE | 2022-03-26 14:02 | CT_ITS ---
FINAL REPORT TECHNIQUE: Thin section axial CT images with coronal and sagittal reformats were performed. 3D images were also submitted. This study was performed with techniques to keep radiation doses as low as reasonably achievable (ALARA). Individualized dose reduction techniques using automated exposure control or adjustment of mA and/or kV according to the patient''s size were employed. CLINICAL HISTORY: fracture evaluation FINDINGS: CT LOWER EXTREMITY WITHOUT CONTRAST There is a comminuted displaced fracture of the anterior talus with a fracture line that is predominantly vertical in orientation. There are multiple small fragments well seen on the sagittal images 31-37 of series 602. There are also multiple ossific fragments seen in the middle and posterior subtalar joints consistent with intra-articular loose bodies. The mortise is intact. The medial and lateral malleoli are intact. IMPRESSION: Comminuted displaced fracture of the anterior talus with intra-articular loose bodies extending into the subtalar joints as described. Reviewed, Interpreted and Dictated by Bruno Miranda MD Transcribed by Isis Cordero Authenticated and [facility]
== END ==
PROVIDERS: PCP Emergency Medicine; Visit Provider Podiatrist
DX: M25.572 Pain in left ankle and joints of left foot (principal); S92.102A Unspecified fracture of left talus, initial encounter for closed fracture
CPT/HCPCS: 73700

== ENCOUNTER → 2022-05-10 08:28 | Outpatient (CLI) | payer MEDICARE, MEDICAID, SELFPAY ==
[2022-05-09 18:22] LABS: Amphetamine/Metha Screen,Urine Negative ng/ml (<1000)
[2022-05-09 18:23] LABS: Barbiturates Screen,Urine Negative ng/ml (<200)
[2022-05-09 18:24] LABS: Benzodiazepines Screen,Urine Negative ng/ml (<200); Cannabinoid Screen,Urine Positive ng/ml (<50)
[2022-05-09 18:25] LABS: Methadone Screen,Urine Negative ng/ml (<300)
[2022-05-09 18:26] LABS: Cocaine Screen,Urine Negative ng/ml (<300)
[2022-05-09 18:27] LABS: Phencyclidine Screen,Urine Negative ng/ml (<25)
[2022-05-09 18:28] LABS: Opiate Screen,Urine Positive ng/ml (<300)
== END ==
PROVIDERS: PCP Emergency Medicine; Visit Provider Emergency Medicine
DX: M54.16 Radiculopathy, lumbar region (principal)
CPT/HCPCS: 80305

== ENCOUNTER → 2022-07-07 11:31 | Outpatient (CLI) | payer MEDICARE, MEDICAID, SELFPAY ==
[2022-07-07 15:06] LABS: Amphetamine/Metha Screen,Urine Negative ng/ml (<1000); Barbiturates Screen,Urine Negative ng/ml (<200)
[2022-07-07 15:07] LABS: Benzodiazepines Screen,Urine Negative ng/ml (<200)
[2022-07-07 15:08] LABS: Cannabinoid Screen,Urine Positive ng/ml (<50)
[2022-07-07 15:09] LABS: Cocaine Screen,Urine Negative ng/ml (<300)
[2022-07-07 15:10] LABS: Methadone Screen,Urine Negative ng/ml (<300)
[2022-07-07 15:11] LABS: Opiate Screen,Urine Positive ng/ml (<300); Phencyclidine Screen,Urine Negative ng/ml (<25)
== END ==
PROVIDERS: PCP Emergency Medicine; Visit Provider Emergency Medicine
DX: M54.16 Radiculopathy, lumbar region (principal)
CPT/HCPCS: 80305

== ENCOUNTER → 2022-08-05 14:02 | Outpatient (CLI) | payer MEDICARE, MEDICAID, SELFPAY ==
--- NOTE | 2022-08-05 14:13 | XR_ITS ---
FINAL REPORT CLINICAL HISTORY: hx of fx FINDINGS: LEFT CALCANEUS 2 views were obtained. There is no acute fracture. The visualized joint spaces are intact. There is no soft tissue abnormality. IMPRESSION: No acute process. Reviewed, Interpreted and Dictated by Dany Theodore MD Transcribed by Bhavin Lemons Authenticated and [facility]
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
[2022-08-14 02:44] LABS: 1,25 Dihydroxy Vitamin D 47 pg/mL (.); 1,25-Dihydroxy, Vitamin D-2 <10 pg/mL (.); 1,25-Dihydroxy, Vitamin D-3 45 pg/mL (.)
== END ==
PROVIDERS: PCP Emergency Medicine; Visit Provider Podiatrist
DX: S92.11 Fracture of neck of talus (principal); E55.9 Vitamin D deficiency, unspecified
CPT/HCPCS: 36415; 73630; 73650; 82652

== ENCOUNTER → 2022-10-07 11:26 | Outpatient (CLI) | payer MEDICARE, MEDICAID, SELFPAY ==
--- NOTE | 2022-10-07 12:14 | XR_ITS ---
FINAL REPORT CLINICAL HISTORY: heel pain COMPARISON: 08/05/2022 FINDINGS: LEFT HEEL 2 views of the left calcaneus were obtained. There is a subacute talar fracture with a bony fragment superiorly. Bony alignment is stable. There is no acute fracture or dislocation. The joint spaces are intact. There is no soft tissue abnormality. IMPRESSION: Subacute talar fracture with a bony fragment superiorly. No new bony abnormality. Reviewed, Interpreted and Dictated by Luis Antonio Montalvo III, MD Transcribed by Isis Cordero Authenticated and . [facility]
--- NOTE | 2022-10-07 12:14 | XR_ITS ---
FINAL REPORT CLINICAL HISTORY: foot pain COMPARISON: 08/05/2022 FINDINGS: LEFT FOOT Three weight-bearing views of the left foot demonstrate no acute fracture or dislocation. There are mild degenerative changes, stable. The soft tissues are unremarkable. IMPRESSION: Mild degenerative changes with no acute bony abnormality. Reviewed, Interpreted and Dictated by Luis Antonio Montalvo III, MD Transcribed by Isis Cordero Authenticated and [facility]
== END ==
PROVIDERS: PCP Emergency Medicine; Visit Provider Podiatrist
DX: M19.172 Post-traumatic osteoarthritis, left ankle and foot (principal); S92.11 Fracture of neck of talus
CPT/HCPCS: 73630; 73650

== ENCOUNTER → 2022-10-29 11:08 | Outpatient (CLI) | payer MEDICARE, MEDICAID, SELFPAY ==
[2022-10-29 17:16] LABS: Amphetamine/Metha Screen,Urine Negative ng/ml (<1000); Barbiturates Screen,Urine Negative ng/ml (<200); Benzodiazepines Screen,Urine Negative ng/ml (<200); Cannabinoid Screen,Urine Positive ng/ml (<50); Cocaine Screen,Urine Negative ng/ml (<300); Methadone Screen,Urine Negative ng/ml (<300); Opiate Screen,Urine Positive ng/ml (<300); Phencyclidine Screen,Urine Negative ng/ml (<25)
== END ==
PROVIDERS: PCP Emergency Medicine; Visit Provider Emergency Medicine
DX: M54.16 Radiculopathy, lumbar region (principal)
CPT/HCPCS: 80305

== ENCOUNTER 2022-12-12 14:30 | Outpatient (RCR) | payer MEDICARE, MEDICAID, SELFPAY ==
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
--- NOTE | 2022-11-07 12:18 | HMH.RHREAS ---
Rehab Reassessment Rehab OP Re-assessment Start: 11/07/22 08:18 Freq: Status: Active Protocol: Document 11/07/22 11:17 NIKI (Rec: 11/07/22 12:17 NIKI [id number]) E-signed By Lien Jacobs, PT Rehab Re-assessment Subjective Subjective Pt presents to the PT clinic with reports of continued ankle pain. Pt rates current L ankle pain as a 9/10. Pt reports that he has not noticed an improvement in L ankle function since beginning PT treatment. Pt reports he continues to have difficulty with stepping down onto ground and pain with all movements. Objective Objective Notes L ankle AROM DF: 5* PF: 25* IN: 20* EV: 5* L ankle MMT DF: 4-/5 PF: 3+/5 IN: 3+/5 EV: 3+/5 Assessment Progress Assessment Slower Than Expected Assessment Notes Pt has made improvements in L ankle AROM and L ankle strength compared to the initial evaluation. Pt has been limited in attending PT treatment sessions due to transportation/scheduling issues and has attended one treatment session since the initial evaluation. Pt remains limited by high levels of pain at rest and during movements. Patient goals met Met STG MMT Goals Not Met STG ROM, STG Pain, LTG's Revised Goals n/a Plan Plan Continue with current plan of care, recommend pt to follow up with referring provider to discuss pain management options. Frequency of Therapy 2-3x/wk Duration of therapy 4-6wks Time and Billing Re-Eval Time 10 Re-Eval Billing Units 1 PHYSICIAN CERTIFICATION: I certify the specified therapy services for Tommy Griffin are required, authorized, and reviewed every
--- NOTE | 2022-12-12 15:44 | HMH.RHREAS ---
Rehab Reassessment Rehab OP Re-assessment Start: 11/07/22 08:18 Freq: Status: Active Protocol: Document 12/12/22 14:48 NIKI (Rec: 12/12/22 15:44 RUILALA [id number]) E-signed By Lien Jacobs, PT Rehab Re-assessment Subjective Subjective Pt presents to the PT clinic with reports of 7/10 L ankle pain. Pt reports he continues to have pain and difficulty with all ankle motions, especially with walking on uneven ground. Pt reports 50% improvement since beginning PT treatment. Pt reports he is scheduled to see Dr. Viveros on 12/30/22. Objective Objective Notes L ankle AROM DF: 5* PF: 30* IN: 20* EV: 5* L ankle MMT DF: 4+/5 PF: 4+/5 IN: 4-/5 EV: 4-/5 Assessment Progress Assessment Slower Than Expected Assessment Notes Pt had attended 4 physical therapy treatment sessions since the initial evaluation performed on 10/10/2022. Pt has been limited in progression of L ankle strength, ROM and functional capacity due to limited number of treatment sessions attended as well as subjective reports of high levels of pain on VAS with treatment interventions. Pt has improved in L ankle strength and DF/PF AROM since re-evaluation performed on 11/07. Pt has been unable to tolerate interventions consisting of L ankle strengthening, AROM and balance due to high levels of L ankle pain during and following interventions. Pt experiences some short-term pain relief with therapeutic modalities. Discussed with pt who is in agreement to hold PT
== END 2022-12-12 14:35 | disposition home or self-care (01) ==
LOC: PT 14:30
PROVIDERS: PCP Emergency Medicine; Visit Provider Podiatrist
DX: M24.072 Loose body in left ankle (principal); M24.08 Loose body, other site
CPT/HCPCS: 97010; 97014; 97033; 97035; 97110; 97163; 97164; G0283

== ENCOUNTER → 2022-12-26 10:41 | Outpatient (CLI) | payer MEDICARE, MEDICAID, SELFPAY ==
--- NOTE | 2022-12-26 10:45 | XR_ITS ---
FINAL REPORT CLINICAL HISTORY: ankle pain FINDINGS: LEFT ANKLE Three views demonstrate no acute fracture or dislocation. The visualized joint spaces are normally aligned. There are mild degenerative changes. The soft tissues are unremarkable. IMPRESSION: No acute bony abnormality. Reviewed, Interpreted and Dictated by Luis Antonio Montalvo III, MD Transcribed by Yamile Vance Authenticated and . [facility]
--- NOTE | 2022-12-26 10:45 | XR_ITS ---
FINAL REPORT CLINICAL HISTORY: Foot Pain FINDINGS: LEFT FOOT Three views of the left foot demonstrate no acute fracture or dislocation. There are mild degenerative changes of the great toe. The visualized joint spaces are normally aligned. The soft tissues are unremarkable. IMPRESSION: No acute bony abnormality. Reviewed, Interpreted and Dictated by Luis Antonio Montalvo III, MD Transcribed by Yamile Vance Authenticated and [facility]
== END ==
PROVIDERS: PCP Emergency Medicine; Visit Provider Podiatrist
DX: M79.673 Pain in unspecified foot (principal); M25.579 Pain in unspecified ankle and joints of unspecified foot
CPT/HCPCS: 73610; 73630

== ENCOUNTER → 2022-12-26 23:23 | Outpatient (CLI) | payer MEDICARE, MEDICAID, SELFPAY ==
[2022-12-26 19:05] LABS: Basophils % 0.4 % (0.1-2.0); Eosinophils # 0.3 K/mm3 (0.0-0.4); Eosinophils % 2.8 % (0.1-12.0); Hematocrit 41.5 % (42.0-52.0); Hemoglobin 13.1 g/dL (14.1-18.0); Lymphocytes # 2.2 K/mm3 (0.7-4.5); Lymphocytes % 21.9 % (10-50); Mean Corpuscular HGB Conc 31.5 g/dL (31.8-35.4); Mean Corpuscular Hemoglobin 31.7 pg (27.0-31.2); Mean Corpuscular Volume 100.5 fl (80-94); Mean Platelet Volume 7.6 fl (7.4-10.4); Monocytes # 0.7 K/mm3 (0.1-1.0); Monocytes % 6.6 % (1.7-9.3); Neutrophils # 6.9 K/mm3 (1.8-7.8); Neutrophils % 68.2 % (37.0-80.0); Platelet Count 256 K/mm3 (142-424); Red Blood Count 4.13 M/mm3 (4.60-6.20); Red Cell Distribution Width 13.1 % (11.5-17.5)
[2022-12-26 19:32] LABS: Alanine Aminotransferase 23 U/L (12-78); Albumin Level 4.4 g/dl (3.5-5.0); Albumin/Globulin Ratio 1.3 (1.1-1.8); Alkaline Phosphatase 59 U/L (38-126); Anion Gap 18.3 mEq/L (5-15); Aspartate Amino Transferase 29 U/L (17-59); Bilirubin,Total 0.3 mg/dl (0.2-1.3); Blood Urea Nitrogen 16 mg/dl (9-20); Calcium 9.3 mg/dl (8.4-10.2); Carbon Dioxide 26 mmol/L (22.0-30.0); Chloride 103 mmol/L (98-107); Chol/HDL Ratio 4.9 (1-3.5); Cholesterol 186 mg/dl (140-200); Estimated Glomerular Filt Rate 84 ml/min (>60); GFR (African American) 102 ML/MIN (>60); Globulin 3.4 g/dL (1.3-3.2); Glucose 122 mg/dl (74-100); HDL Cholesterol 38 mg/dl (40-60); Potassium 4.3 mmoL/L (3.5-5.1); Sodium 143 mmol/L (136-145); Total Protein,Serum 7.8 g/dl (6.3-8.2); Triglycerides 149 mg/dl (30-150); VLDL Cholesterol 30 mg/dL (0-40)
[2022-12-26 19:43] LABS: Direct LDL Cholesterol 114.35 mg/dL (100-129)
[2022-12-26 19:51] LABS: 25-OH Vitamin D, Total 37.1 ng/mL (30-100)
[2022-12-26 20:04] LABS: Prostate Specific Ag Screen 0.4 ng/ml (0.0-4.0); Thyroid Stimulating Hormone 1.51 uIU/mL (0.465-4.68)
[2023-01-01 05:43] LABS: Free Testosterone (Direct) 2.7 pg/mL (6.6-18.1); Testosterone, Total, LC/MS 346.8 ng/dL (264.0-916.0)
== END ==
PROVIDERS: PCP Emergency Medicine; Visit Provider Emergency Medicine
DX: F41.9 Anxiety disorder, unspecified; E66.3 Overweight; E55.9 Vitamin D deficiency, unspecified; H11.31 Conjunctival hemorrhage, right eye; M19.172 Post-traumatic osteoarthritis, left ankle and foot; M25.372 Other instability, left ankle; M76.72 Peroneal tendinitis, left leg; E29.1 Testicular hypofunction; Z68.26 Body mass index [BMI] 26.0-26.9, adult; Z12.5 Encounter for screening for malignant neoplasm of prostate
CPT/HCPCS: 73610; 73630; 80053; 80061; 82306; 84443; 85025; G0103

== ENCOUNTER → 2023-01-16 08:47 | Outpatient (CLI) | payer MEDICARE, MEDICAID, SELFPAY ==
--- NOTE | 2023-01-16 08:48 | MR_ITS ---
FINAL REPORT CLINICAL HISTORY: Left ankle pain. ANKLE FRACTURE 11 MONTHS AGO. LATERAL SIDED ANKLE PAIN SINCE. COMPARISON: None FINDINGS: Multiplanar MR imaging of the left ankle was performed without contrast. There is a subacute chronic fracture involving the talar neck and distal talus. In addition, there is a 4 mm focus of abnormal signal in the lateral talar dome which may represent osteochondral fracture or osteochondral lesion. There is overlying cartilage thinning. There is mild degenerative change. There is a 6 mm osteochondral lesion inferior to the talus at the posterior subtalar joint. There is irregularity of the ATFL consistent with tear or partial tear. The flexor and extensor tendons are intact. The posterior plantar aponeurosis is intact. No significant joint effusion is seen. The musculature is intact. There is no evidence of soft tissue mass or cyst. IMPRESSION: Subacute fracture involving the talar neck and distal talus. Osteochondral fracture or osteochondral lesion lateral talar dome. Inferior talus osteochondral lesion. Tear or partial tear of the ATFL. Reviewed, Interpreted and Dictated by Luis Antonio Montalvo III, MD Transcribed by Leti Rivas Authenticated and [facility]
== END ==
PROVIDERS: PCP Emergency Medicine; Visit Provider Podiatrist
DX: M25.372 Other instability, left ankle (principal); M76.72 Peroneal tendinitis, left leg; R60.0 Localized edema; M25.572 Pain in left ankle and joints of left foot
CPT/HCPCS: 73721

== ENCOUNTER → 2023-02-02 12:34 | Outpatient (CLI) | payer MEDICARE, MEDICAID, SELFPAY ==
[2023-02-02 13:55] LABS: Hemoglobin A1C < 4.0 % (4.0-6.0)
[2023-02-02 14:02] LABS: Vitamin B12 372 pg/mL (239-931)
[2023-02-04 15:09] LABS: Folate, RBC 1161 ng/mL (>498); Hematocrit 37.8 % (37.5-51.0)
[2023-02-08 02:09] LABS: Testosterone, Total, LC/MS 361 ng/dL (.)
== END ==
PROVIDERS: PCP Emergency Medicine; Visit Provider Emergency Medicine
DX: D64.9 Anemia, unspecified (principal); R73.09 Other abnormal glucose; E55.9 Vitamin D deficiency, unspecified; C61 Malignant neoplasm of prostate
CPT/HCPCS: 36415; 82607; 82747; 83036; 84403; 85014

== ENCOUNTER → 2023-02-24 13:01 | Outpatient (CLI) | payer MEDICARE, MEDICAID, SELFPAY ==
[2023-02-24 18:17] LABS: Amphetamine/Metha Screen,Urine Negative ng/ml (<1000); Barbiturates Screen,Urine Negative ng/ml (<200)
[2023-02-24 18:18] LABS: Benzodiazepines Screen,Urine Negative ng/ml (<200)
[2023-02-24 18:19] LABS: Cannabinoid Screen,Urine Positive ng/ml (<50); Cocaine Screen,Urine Negative ng/ml (<300)
[2023-02-24 18:21] LABS: Methadone Screen,Urine Negative ng/ml (<300); Opiate Screen,Urine Positive ng/ml (<300)
[2023-02-24 18:22] LABS: Phencyclidine Screen,Urine Negative ng/ml (<25)
== END ==
PROVIDERS: PCP Emergency Medicine; Visit Provider Physician Assistant
DX: M54.16 Radiculopathy, lumbar region (principal)
CPT/HCPCS: 80305

== ENCOUNTER → 2023-06-01 08:46 | Outpatient (CLI) | payer MEDICARE, MEDICAID, SELFPAY ==
[2023-06-01 22:33] LABS: Amphetamine/Metha Screen,Urine Negative ng/ml (<1000)
[2023-06-01 22:34] LABS: Barbiturates Screen,Urine Negative ng/ml (<200); Benzodiazepines Screen,Urine Negative ng/ml (<200)
[2023-06-01 22:35] LABS: Cannabinoid Screen,Urine Positive ng/ml (<50); Cocaine Screen,Urine Negative ng/ml (<300)
[2023-06-01 22:36] LABS: Methadone Screen,Urine Negative ng/ml (<300)
[2023-06-01 22:37] LABS: Opiate Screen,Urine Positive ng/ml (<300); Phencyclidine Screen,Urine Negative ng/ml (<25)
== END ==
PROVIDERS: PCP Emergency Medicine; Visit Provider Emergency Medicine
DX: M54.16 Radiculopathy, lumbar region (principal)
CPT/HCPCS: 80305

== ENCOUNTER 2023-08-07 16:55 | Emergency (ER) | payer MEDICARE, MEDICAID, SELFPAY ==
[2023-08-07 16:56] VITALS: BP 144/76; PULSE 66; RESP 18; TEMP 37; O2SAT 93; BMI 24.9
--- NOTE | 2023-08-07 17:48 | ED_ITS ---
Discharge Plan Disposition Patient Disposition: Home, Self-Care Condition: Good Prescriptions Prescriptions: No Action Poly-Vi-Eulalia 250 mcg-50 mg- 10 mcg/mL drops 1 ml PO DAILY Qty: 50 5RF albuterol sulfate 90 mcg/actuation HFA aerosol inhaler See Rx Instructions .ROUTE .COMPLEX Qty: 18 0RF Dose Instruction: INHALE 2 PUFFS BY MOUTH EVERY 4 TO 6 HOURS NEEDED FOR SHORTNESS OF BREATH OR WHEEZING Rx Instructions: INHALE 2 PUFFS BY MOUTH EVERY 4 TO 6 HOURS NEEDED FOR SHORTNESS OF BREATH OR WHEEZING clonazepam 0.5 mg tablet 0.5 mg PO QID Qty: 120 1RF gabapentin 800 mg tablet 800 mg PO TID Qty: 90 1RF hydrocodone-acetaminophen 10-325 mg tablet 1 tab PO QID Qty: 120 0RF budesonide-formoterol [Symbicort] 80-4.5 mcg/actuation HFA aerosol inhaler 1 puff IH BID Qty: 10.2 2RF tadalafil 2.5 mg tablet See Rx Instructions .ROUTE .COMPLEX Qty: 30 1RF Dose Instruction: TAKE ONE TABLET BY MOUTH ONCE A DAY NEEDED FOR SEXUAL ACTIVITY Rx Instructions: TAKE ONE TABLET BY MOUTH ONCE A DAY NEEDED FOR SEXUAL ACTIVITY Referrals Follow up/Referrals: Provider,Referral, MD [Primary Care Provider] - See instructions Activity Restrictions/Add. Instructions Additional Instructions/Restrictions: Please follow-up with the pain clinic. Please return with any new or worsening symptoms Clinical Impressions Clinical Impression: Chronic foot pain Qualifiers: Laterality: left Qualified Code(s): M79.672 - Pain in left foot Discharge ED Provider: Triston Jaquez Adult HPI General Chief complaint: Fall Stated complaint: AO fall 08/01, left ankle pain Time Seen by Provider: 08/07/23 17:48 Mode of Arrival: Ambulatory Source of Information: Patient Limitations: No Limitations Description of Symptoms (Recalled from ER Triage Doc. by RN): c/o fall last Thursday on a wood pile resulting in pain in his lower back, STates that he seen his pcp who told him he couldnt write for any pain medicine per the hospital. Pt states that he hasnt had his prescribed pain medicine since Thursday. Denies any other pain or injuries at this time, denies hitting his head. History of Present Illness HPI narrative: Patient states he was sent from his primary care provider's office, he has history of prostate cancer, chronic injury to left lower extremity, he has previous home medication of oxycodone, benzodiazepine, very high dose gabapentin, and produces receipts of prescriptions for these medications. He has been switched to a new provider within the same practice as, to my understanding, his preceding primary care provider has left the practice. He presented to primary care clinic today as he has been out of his home medications. He was instructed, he reports, by an advanced practice provider within that same practice that the practice is no longer capable or able to continue these home medications. He was told that he should establish with a pain management clinic. In the interim he states that he was instructed to present to the emergency department and that an emergency medicine physician may be able to help him regarding refills of his home medications. He denies any new trauma for me, just simply describes ongoing pain and wishes to have his medications refilled. He states he was not informed prior to the visit today that his home medications would be abruptly discontinued. He denies any overt symptoms concerning to me for withdrawal such as tremulousness, agitation, seizure-like activity, diarrhea, among others. Expresses a great deal of disappointment and frustration with his management at this primary care provider facility and has difficulty understanding why they did not inform him that his home medications would be abruptly discontinued and at that they would not be able to continue to prescribe his medications. Related Data Previous Rx's Medication Instructions Recorded albuterol sulfate 90 mcg/actuation See Rx Instructions .Route 12/31/21 aerosol inhaler .COMPLEX #18 grams pediatric multivitamin no.192 250 1 ml PO DAILY #50 mL 02/24/23 mcg-50 mg-10 mcg/mL oral drops (Poly-Vi-Eulalia) clonazepam 0.5 mg tablet 0.5 mg PO QID anxiety #120 tabs 06/01/23 gabapentin 800 mg tablet 800 mg PO TID #90 tabs 06/01/23 hydrocodone 10 mg-acetaminophen 1 tab PO QID #120 tabs 06/01/23 325 mg tablet budesonide-formoterol HFA 80 1 puff inhalation BID #10.2 grams 07/23/23 mcg-4.5 mcg/actuation aerosol inhaler (Symbicort) tadalafil 2.5 mg tablet See Rx Instructions .Route 07/23/23 .COMPLEX #30 tabs Allergies Allergy/AdvReac Type Severity Reaction Status Date / Time aspirin [ASPIRIN] Allergy Unknown Verified 08/07/23 15:40 [facility] Disclaimer: The information contained in this section may have been updated after the patient was seen, as this information can be updated by other users. Social History Smoking Status: Never smoker second hand exposure: No alcohol intake: never substance use type: marijuana current occupational status: unemployed Travel in the last 8 weeks: None housing: house current occupational exposures/hazards: No caffeine: Yes ROS Obtained: Yes Systems reviewed as appropriate & no additional complaints except as documented As per HPI Physical Exam General General appearance: alert and in no apparent distress Head Head exam: atraumatic and normocephalic Eye Eye exam: Present normal appearance Neck Neck exam: Present normal inspection Chest Chest inspection: Present normal inspection and symmetric chest wall rise Respiratory Respiratory exam: Present normal lung sounds bilaterally; Absent respiratory distress Cardiovascular Cardiovascular exam: Present regular rate and normal rhythm Abdominal Exam Abdominal exam: Present soft Extremities Exam Extremities exam: Present other (Left ankle tenderness to palpation, distally neurovascularly intact) Neurological Exam Neurological exam: Present alert and oriented X3 Psychiatric Psychiatric exam: Present normal affect and normal mood Skin Skin exam: Present warm and dry Medical Decision Making Medical Records Medical records reviewed: Yes I reviewed the patient's medical records. Ayan Inquiry Pt receiving controlled substance: No Vital Signs: 08/07/23 16:56 08/07/23 19:25 Temperature 98.6 F 98.4 F Temperature Source Oral Oral Pulse Rate 61 Pulse Rate [Left Radial] 66 Respiratory Rate 18 16 Blood Pressure 162/80 H Blood Pressure [Right Arm] 144/76 H Blood Pressure Mean [Right Arm] 98 Blood Pressure Source [Right Arm] Automatic Cuff Blood Pressure Position [Right Arm] Sitting 02 Sat by Pulse Oximetry 93 L Oxygen Delivery Method Room Air Orders (Tests/Meds): ED MEDICATIONS Discontinued Medications Generic Name Dose Route Start Last Admin Trade Name Freq PRN Reason Stop Dose Admin Hydrocodone Bitart/Acetaminophen 1 tab 08/07/23 19:07 08/07/23 19:21 Hydrocodone 10mg/Apap 325mg Tab PO 08/07/23 19:08 1 tab ONCE ONE Administration Medical Decision Narrative: Patient with history and exam per above presenting with request for medication refill. Unfortunately, it is not within my scope of practice or role of emergency medicine physician to continue multiple controlled substances per patient with whom I have not established care, in my clinical opinion, based off of my understanding of patient's medical history and age, the medications he had previously been prescribed including benzodiazepines, high dose opiate analgesia, and gabapentin which appears to be 800 mg 3 times daily, are of very high risk and his demographic and are prone to producing significant and kip gerous side effects. Specifically, per beers list, very few of these medications are considered safe in a 67-year-old male. That being said, patient is prone to withdrawal from his polypharmacy should he not get expedited establishment of care with primary care provider or pain management clinic. I am personally unclear of the circumstances that led to this practice stating they are no longer able to write prescriptions for controlled substances. I had a lengthy discussion with patient and will provide him a one-time dose of his home oxycodone for his symptoms at this time. He does not clinically appear to be in withdrawal at this time. He was provided return precautions and will seek care at pain management clinic. Critical Care Critical Care Time Critical Care Time: No
[2023-08-07] MEDS: HYDROCODONE 10MG/APAP 325MG TAB 1 TAB PO (19:21)
[2023-08-07 19:25] VITALS: BP 162/80; PULSE 61; RESP 16; TEMP 36.9
== END 2023-08-07 19:27 | disposition home or self-care (01) ==
PROVIDERS: Emergency Provider Emergency Medicine
DX: M79.672 Pain in left foot (principal); M54.50 Low back pain, unspecified; W19.XXXA Unspecified fall, initial encounter
CPT/HCPCS: 99283

== ENCOUNTER 2024-10-17 16:30 | Emergency (ER) | payer MEDICARE, MEDICAID, SELFPAY ==
--- NOTE | 2024-10-17 16:41 | PC.NURSE ---
LAB NOTIFIED OF LEGAL DRAW
[2024-10-17 16:47] VITALS: BP 182/87; PULSE 84; RESP 18; TEMP 36.8; O2SAT 95; BMI 25.7
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
[2024-10-17 16:58] VITALS: BP 178/80; PULSE 80; RESP 18; TEMP 36.8; O2SAT 95
== END 2024-10-17 17:00 ==
PROVIDERS: Emergency Provider Student in an Organized Health Care Education/Training Program; PCP Family Medicine
DX: Z00.8 Encounter for other general examination (principal)
CPT/HCPCS: 99281